=== PATIENT | female | born 1995 | race Caucasian/White ===

== ENCOUNTER 2018-02-14 21:30 | Emergency (ER) | payer BC ==
[2018-02-14] MEDS ORDERED: Ibuprofen 600 MG Tab PO ONE (22:20)
[2018-02-14] MEDS ORDERED: Ondansetron 4 MG Tab.DIS PO ONE (22:20)
[2018-02-14] MEDS ORDERED: Orphenadrine 100 MG Tab.ER PO STA (22:20)
--- NOTE | 2018-02-14 22:29 | EDM.PDOC ---
ED HPI GENERAL MEDICAL PROBLEM - General Chief Complaint: Back Pain or Injury Stated Complaint: [facility] Time Seen by Provider: 02/14/18 21:42 Source of Information: Reports: Patient, Family (, mother) History Limitations: Reports: No Limitations - History of Present Illness INITIAL COMMENTS - FREE TEXT/NARRATIVE: The patient is brought by ambulance with a complaint of severe low back pain since 05:00 this morning. No history of trauma. No recent illness or fever. She states that the pain is always present, but worse with certain movements, including flexing and standing. The pain does not radiate down either lower extremity. Patient states that she took ibuprofen around 07:00 this morning. The patient states that she was then seen at the walk-in clinic at 10:15 this morning. She states that no tests were done, but she was referred to the clinic for further evaluation and treatment. The patient states that she did not go to the clinic, citing lack of funds. The patient states that she then took a Percocet around noon. No prior similar symptoms. The patient states that she lifts about 5-10 pounds off the floor at work. She has been doing this since July. The patient has an appointment to see Paige Fuentes as a PCP tomorrow morning, Tuesday,, 02/15/2018, at 09:00. Treatments WAIST CUTTER: Reports: NSAIDS, Other Medication(s), Other (see below) Other Treatments WAIST CUTTER: heat pack Bilateral Middle Back Pain Score (Numeric/FACES): 10 - Related Data Allergies Allergy/AdvReac Type Severity Reaction Status Date / Time No Known Allergies Allergy Verified 02/14/18 21:40 Home Meds: Home Meds Ondansetron [Zofran ODT] 1 tab PO Q8H PRN #10 tab.dis 02/14/18 [Rx] Orphenadrine [Norflex] 1 tab PO Q12H PRN #20 tab.er 02/14/18 [Rx] Past Medical History Endocrine/Metabolic History: Reports: Obesity/BMI 30+ - Infectious Disease History Infectious Disease History: Reports: Chicken Pox, Other (See Below) (Kawasaki disease at 4 years old) - Past Surgical History HEENT Surgical History: Reports: Myringotomy w Tube(s) (bilateral) Social & Family History - Family History Family Medical History: Noncontributory - Tobacco Use Smoking Status *Q: Former Smoker Years of Tobacco use: 1 Month/Year Tobacco Last Used: Quit 2011 - Caffeine Use Caffeine Use: Reports: Coffee, Energy Drinks, Soda Other Caffeine Use: occasionally - Alcohol Use Alcohol Use History: Yes Alcohol Use Frequency: Rarely - Recreational Drug Use Recreational Drug Use: Yes Drug Use in Last 12 Months: Yes Recreational Drug Type: Reports: Marijuana/Hashish (smokes occasionally) Recreational Drug Last Use: last week - Living Situation & Occupation Living situation: Reports: , with Spouse 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 ED EXAM,LOWER BACK PAIN/INJURY - Physical Exam Exam: See Below Exam Limited By: No Limitations General Appearance: Alert, WD/WN, Mild Distress (Appears uncomfortable) Eye Exam: Bilateral Eye: EOMI, Normal Inspection Ears: Normal External Exam, Hearing Grossly Normal Nose: Normal Inspection, No Blood Throat/Mouth: Normal Inspection, Normal Lips, Normal Voice, No Airway Compromise Head: Atraumatic, Normocephalic Neck: Normal Inspection, Full Range of Motion Respiratory/Chest: No Respiratory Distress, Lungs Clear, Normal Breath Sounds, No Accessory Muscle Use Cardiovascular: Normal Peripheral Pulses, Regular Rate, Rhythm, No Gallop, No JVD, No Murmur, No Rub GI/Abdominal: Normal Bowel Sounds, Soft, Non-Tender, No Organomegaly, No Distention, No Abnormal Bruit, No Mass, Other (Obese) (Female) Exam: Deferred Rectal (Female) Exam: Deferred Back Exam: Other (No visible abnormality to the patient's back, such as swelling , erythema, ecchymosis, or abrasion. No tenderness to palpation of either the thoracic or lumbar spinous processes, nor to the paraspinous musculature. No tenderness to palpation over the left or right SI joints. Straight leg raise to 30 on the left induces lower left back pain, but no left lower extremity radiculopathy. Straight leg raise to 45 on the right induces lower right back pain, but no right lower extremity radiculopathy. The patient is able to flex the spine to only 2, but extend the spine to about 10. She is able to tilt bilaterally to about 30. She is able to twist bilaterally to about 45. Unilateral knee bend is normal bilaterally.) Extremities: Normal Inspection, Normal Range of Motion, No Pedal Edema, Normal Capillary Refill Neurological: Alert, No Motor/Sensory Deficits, Oriented x 3 Psychiatric: Normal Affect Skin Exam: Warm, Dry, Intact, Normal Color, No Rash Course - Vital Signs Last Recorded V/S: Last Vital Signs Temp 37.3 C 02/14/18 21:32 Pulse 59 L 02/14/18 21:32 Resp 19 02/14/18 21:32 BP 135/74 02/14/18 21:32 Pulse Ox 97 02/14/18 21:32 - Orders/Labs/Meds Meds: Medications Discontinued Medications Generic Name Dose Route Start Last Admin Trade Name Kamar PRN Reason Stop Dose Admin Ibuprofen 600 mg 02/14/18 22:20 02/14/18 22:26 Motrin PO 02/14/18 22:21 600 mg ONETIME ONE Administration Ondansetron HCl 4 mg 02/14/18 22:20 02/14/18 22:26 Zofran Odt PO 02/14/18 22:21 4 mg ONETIME ONE Administration Orphenadrine Citrate 100 mg 02/14/18 22:20 02/14/18 22:26 Norflex PO 02/14/18 22:21 100 mg ONETIME STA Administration - Re-Assessments/Exams Free Text/Narrative Re-Assessment/Exam: 02/14/18 22:21 By both history and physical examination, the patient is experiencing lower back muscle spasm. There is no indication that she has a herniated intervertebral disc, as there is no radiation down either lower extremity. As there is no history of trauma, emergency x-rays of the lumbar spine are not indicated. For today's purposes, I have ordered ibuprofen, Norflex, and Zofran, and I will electronically send prescriptions for Norflex and Zofran. She can take over the counter ibuprofen. She already has an appointment to see Paige Fuentes at 9 :00 tomorrow morning. I advised the patient stay active. Swimming is best, walking is good, as well. I strongly advised that she not stay in bed or lie on the couch, as many studies have shown that this makes lower back pain worse. Departure - Departure Time of Disposition: 22:24 Disposition: Home, Self-Care 01 Condition: Good Clinical Impression: Spasm of muscle of lower back - Discharge Information *PRESCRIPTION DRUG MONITORING PROGRAM REVIEWED*: Not Applicable *COPY OF PRESCRIPTION DRUG MONITORING REPORT IN PATIENT RODOLFO: Not Applicable Prescriptions: Ondansetron [Zofran ODT] 1 tab PO Q8H PRN #10 tab.dis PRN Reason: Nausea/Vomiting Orphenadrine [Norflex] 1 tab PO Q12H PRN #20 tab.er PRN Reason: Muscle Spasm Instructions: Muscle Cramps and Spasms, [id number] Referrals: Paige Fuentes PA-C [Physician Furniture Finisher] - Forms: ED Department Discharge Additional Instructions: You were seen in the emergency room for low back pain, without a history of trauma. Evaluation in the emergency department finds that your back pain is due to a muscle spasm, not a herniated intervertebral disc. You have been started on the muscle relaxant Norflex, along with ibuprofen and the anti-nausea medicine Zofran. Prescriptions for Norflex and Zofran have been sent to the [facility] pharmacy, [address] [place] [address]. Take one tablet of Norflex every 12 hours, starting tomorrow morning, Tuesday , 02/15/2018, as prescribed. Take [id number] ibuprofen, 2-3 tablets (400-600 mg) every 8 hours, with food, as needed for discomfort. Dissolve one tablet of Zofran on your tongue up to every 8 hours, as needed for nausea/vomiting. It is very important that you stay active. Swimming is best, but walking is good , as well. DO NOT lie in bed or on the couch, as this makes low back pain worse ! Follow-up with Paige Fuentes as a PCP at your previously scheduled appointment tomorrow morning, 02/15/2018, at 9:00 AM. If any other problems, please do not hesitate to return to the ER.
== END 2018-02-14 23:03 | disposition home or self-care (01) ==
LOC: JD.ED 21:30
DX: M62.830 Muscle spasm of back (principal); E66.9 Obesity, unspecified; Z87.891 Personal history of nicotine dependence
CPT/HCPCS: 99284; A9270; 99283

== ENCOUNTER 2018-12-11 16:16 | Inpatient (IN) | payer BC ==
[2018-12-11] MEDS ORDERED: Nalbuphine 20 MG/ML 1 ML Syringe IVPUSH PRN (17:11)
[2018-12-11] MEDS ORDERED: Lidocaine 1% 50 ML MDV INJECT ONE (17:11)
[2018-12-11] MEDS ORDERED: Ondansetron 4 MG/2 ML SDV IVPUSH PRN ×2 (17:11→20:20)
[2018-12-11] MEDS ORDERED: Sodium Chloride 0.9% 10 ML Syringe FLUSH PRN (17:11)
[2018-12-11] MEDS ORDERED: Oxytocin/Lactated Ringers 10 UNIT/1,000 ML BAG IV SCH (17:15)
[2018-12-11] MEDS ORDERED: diphenhydrAMINE 50 MG/ML SDV IVPUSH PRN (20:20)
[2018-12-11] MEDS ORDERED: fentaNYL 100 MCG/2 ML SDV EPIDUR PRN (20:20)
[2018-12-11] MEDS ORDERED: ePHEDrine 50 MG/ML SDV IVPUSH PRN (20:20)
--- NOTE | 2018-12-11 20:23 | PCM.PREANE ---
Preanesthetic Assessment - Anesthesia/Transfusion/Family Hx Anesthesia History: No Prior Anesthesia Family History of Anesthesia Reaction: No Transfusion History: No Prior Transfusion(s) - Review of Systems General: No Symptoms Pulmonary: No Symptoms Cardiovascular: Edema (Feet/lower extremities) Gastrointestinal: Other (GERD) Neurological: Headache Other: Reports: None (Obesity BMI 40), Diabetes (Gestational on oral agent for control.) - Physical Assessment Pulse: 78 O2 Sat by Pulse Oximetry: 98 Respiratory Rate: 18 Blood Pressure: 137/69 Vital Signs: Last Vital Signs Temp 36.3 C 12/11/18 17:00 Pulse 78 12/11/18 17:31 Resp 18 12/11/18 17:00 BP 137/69 12/11/18 17:31 Pulse Ox 98 12/11/18 17:00 Height: 1.83 m Weight: 137.983 kg ASA Class: 2 Mental Status: Alert & Oriented x3 Airway Class: Mallampati = 2 Dentition: Reports: Normal Dentition Thyro-Mental Finger Breadths: 3 Mouth Opening Finger Breadths: 3 ROM/Head Extension: Full Lungs: Clear to Auscultation, Normal Respiratory Effort Cardiovascular: Regular Rate, Regular Rhythm - Lab Values: Laboratory Last Values Blood Type B POSITIVE 12/11/18 17:35 Gel Antibody Screen Negative 12/11/18 17:35 - Allergies Allergies/Adverse Reactions: Allergies Allergy/AdvReac Type Severity Reaction Status Date / Time No Known Allergies Allergy Verified 12/11/18 16:46 - Acknowledgements Anesthesia Type Planned: Epidural Pt an Appropriate Candidate for the Planned Anesthesia: Yes Alternatives and Risks of Anesthesia Discussed w Pt/Guardian: Yes Pt/Guardian Understands and Agrees with Anesthesia Plan: Yes PreAnesthesia Questionnaire Cardiovascular History: Reports: Other (See Below) Other Cardiovascular History: Kawasaki's disease diagnosed at 4 yoa and treated KILN PULLER History: Reports: Endocrine/Metabolic History: Reports: Diabetes, Gestational, Obesity/BMI 30+ - Infectious Disease History Infectious Disease History: Reports: Chicken Pox, Other (See Below) (Kawasaki disease at 4 years old) - Past Surgical History HEENT Surgical History: Reports: Myringotomy w Tube(s) - SUBSTANCE USE Smoking Status *Q: Never Smoker Recreational Drug Use History: No - HOME MEDS Home Medications: Home Meds PNV95/Ferrous Fumarate/FA [ Tablet] 1 tab PO DAILY 12/11/18 [History] glyBURIDE [Glyburide] 2.5 mg PO DAILY 12/11/18 [History] - CURRENT (IN HOUSE) MEDS Current Meds: Current Medications Diphenhydramine HCl (Benadryl) 25 mg IVPUSH Q6H PRN PRN Reason: Pruritis Ephedrine Sulfate (Ephedrine Sulfate) 5 mg IVPUSH ASDIRECTED PRN PRN Reason: Hypotension Fentanyl (Sublimaze) 100 mcg EPIDUR ONETIME PRN PRN Reason: Pain Fentanyl/Bupivacaine HCl (Iezkpfgp-Qohdn-Ts 2 Mcg/Ml-0.125%) 100 ml EPIDUR ASDIRECTED PRN PRN Reason: Abdominal Pain Lactated Ringer's (Ringers, Lactated) 1,000 mls @ 100 mls/hr IV ASDIRECTED SARAH Oxytocin/Lactated Ringer's (Pitocin In Lr 10 Units/1,000 Ml) 10 unit in 1,000 mls @ 500 mls/hr IV .CONTINUOUS SARAH Nalbuphine HCl (Nubain) 10 mg IVPUSH Q2H PRN PRN Reason: pain Ondansetron HCl (Zofran) 4 mg IVPUSH Q4H PRN PRN Reason: Nausea/Vomiting Ondansetron HCl (Zofran) 4 mg IVPUSH ONETIME PRN PRN Reason: Nausea/Vomiting Sodium Chloride (Saline Flush) 10 ml FLUSH ASDIRECTED PRN PRN Reason: Keep Vein Open Discontinued Medications Lidocaine HCl (Xylocaine 1%) 50 ml INJECT ASDIRECTED ONE Stop: 12/11/18 17:12
--- NOTE | 2018-12-11 20:34 | PCM.LDHP ---
L&D History of Present Illness - General Date of Service: 12/11/18 Admit Problem/Dx: Patient Status Order with Admit Dx/Problem 12/11/18 17:11 Patient Status [ADT] Routine Admission Diagnosis/Problem Admission Diagnosis/Problem 12/11/18 20:20 Alyson Hitchcock 23-year-old 1 para 0 white female admitted at 37-4/7 weeks gestational age with an ANTONIO of 12/28/2018 for a medical induction for the diagnosis of elevated blood pressures in . Source of Information: Patient History Limitations: Reports: No Limitations - History of Present Illness Introduction:: Alyson Hitchcock 23-year-old 1 para 0 white female admitted at 37-4/7 weeks gestational age with an ANTONIO of 12/28/2018 for a medical induction for the diagnosis of elevated blood pressures in .She was seen in clinic today and brought with her blood pressures for the last 3 days. She was sent been in the 142-154 range over the 80 to to 102 range during that time. She reports headaches daily. Also has had some right sided abdominal pain. She has a history of seen some spots in her eyes but has not reported any of these today. Discussion is held with patient as to the benefits of induction of labor, risks , alternatives of care. It is my feeling that at 37-4/7 weeks gestational age with progression of symptoms and signs at the benefits of continued intrauterine existence do not outweigh benefits of delivery at this point. She appears to understand and wishes to proceed. Patient did have biophysical profile today which showed score of 8/8. This after a less than reassuring nonstress test. Has been weight is 7 lbs. 4 oz. (3288 g). Baby is growing at the 77th percentile. Patient is a gestational diabetic but has been well controlled with diet, activity and glyburide therapy 2.5 mg daily at bedtime. [employer]IST history: 1 para 0 last menstrual period 03/23/2018 onset. LMP was definite and ultrasounds 3 done on 06/23/2018 08/10/2018 and 09/11/2018 consistent with her dates. Patient had menarche at age 11. Cycles every 30 days. Positive hCG occurring on 04/17/2018. course: Patient was first seen for the on 06/23/2018 at 13 weeks and 1 day. Weight gain has been from 264 pounds up to 304 pounds for a 40 pound weight gain. Her vital signs were essentially normal until approximately 34-35 weeks. She's had a progressive increase in her blood pressure since that time. Patient had an abnormal 1 hour GTT and three-hour GTT. She was started on diet and activity along with blood sugars 4 times per day. Blood sugars were little higher than desired and patient was then placed on glyburide 2.5 mg by mouth daily. With this she's been under excellent control. She plans to breast- feed. She had her Tdap immunization on 10/26/2018. She's been undergoing weekly NSTs with reactive strips resulting. She is group B strep negative. She desires epidural. She declined flu shot. She declined genetic testing. Laboratory testing in consistent B+ blood. Negative and by screen. First hemoglobin was 12.9 g/dL. Platelets are 306,000. She is rubella nonimmune. Hepatitis B surface antigen and HIV assays are both negative as were Chlamydia and gonorrhea assays. Second trimester laboratory testing showed hemoglobin 11.1 g/dL which time she was started on ferrous sulfate 325 mg by mouth daily. Platelets are 282,000. One-hour GTT was 184 mg/dL. Three-hour glucose tolerance test showed a fasting blood sugar of 95. A 1 hour test of 207. A 2 hour glucose of 193 and a three-hour glucose of 128. Group B strep screen is negative. RPR and second trimester was nonreactive. Allergies: None Medications: 1. Glyburide 2.5 mg by mouth daily at bedtime. 2. Ferrous sulfate 325 mg by mouth daily 3. vitamins 1 daily Past medical history: 1. History of endometriosis and prepped 2. Seasonal allergies Past surgical history: Unremarkable Family history: Mother is alive and well. Maternal grandmother is alive and well with hypertension and bad knees. Maternal grandfather secondary to motor vehicle accident. Paternal grandmother and paternal grandfathers history not known. No , anesthesia, bleeding or blood clotting problems or psychiatric problems noted in the family. Social history: Patient is . is Daquan Marques. She does not use any significant most alcohol, drugs tobacco. She is a high school graduate. Review of systems: The patient's chief complaints include those outlined in history of present illness. She has edema in bilateral lower extremities. Doses had headaches and occasionally spots from the right. Reports good activity. Skin: Negative Lungs: No infectious symptoms or shortness of breath Cardiovascular: No chest pain or exercise intolerance Breasts: No lumps, changes in size, pain, dimpling, discharge or axillary or supraclavicular concerns. GI: Negative : Negative Musculoskeletal: Negative Neurological: Negative In general the patient is well-developed, well-nourished, overweight white, pleasant female of stated age in no acute distress. Skin is warm dry without lesions. HEENT, neck and back within normal limits. Lungs are clear with good breath sounds in all lung paige. Cardiovascular exam shows regular and rhythm without murmurs. Abdomen is gravid with last fundal height in clinic on the day of admission at 39.5. Baby is in a vertex presentation. Genital exam: There is normal external genitalia, BUS, pubic hair pattern. There is normal support, secretions and estrogenization vagina. Uterus is small , anterior, freely mobile, without parametrial induration or adnexal abnormalities. Cervix is 2 cm/60%/soft/-3/mid position Extremities and neurological exam are grossly within normal limits. - Related Data Allergies/Adverse Reactions: Allergies Allergy/AdvReac Type Severity Reaction Status Date / Time No Known Allergies Allergy Verified 12/11/18 16:46 Home Medications: Home Meds PNV95/Ferrous Fumarate/FA [ Tablet] 1 tab PO DAILY 12/11/18 [History] glyBURIDE [Glyburide] 2.5 mg PO DAILY 12/11/18 [History] Past Medical History Cardiovascular History: Reports: Other (See Below) Other Cardiovascular History: Kawasaki's disease diagnosed at 4 yoa and treated [employer] SPECIALIST History: Reports: Endocrine/Metabolic History: Reports: Diabetes, Gestational, Obesity/BMI 30+ - Infectious Disease History Infectious Disease History: Reports: Chicken Pox, Other (See Below) (Kawasaki disease at 4 years old) - Past Surgical History HEENT Surgical History: Reports: Myringotomy w Tube(s) Social & Family History - Family History Family Medical History: Noncontributory - Tobacco Use Smoking Status *Q: Never Smoker - Caffeine Use Caffeine Use: Reports: None Other Caffeine Use: occasionally - Recreational Drug Use Recreational Drug Use: No - Living Situation & Occupation Living situation: Reports: , with Spouse 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 Review of Systems - Review of Systems: Review Of Systems: See Below L&D Exam - Exam Exam: See Below - Vital Signs Vital Signs: Last Vital Signs Temp 36.3 C 12/11/18 17:00 Pulse 78 12/11/18 17:31 Resp 18 12/11/18 17:00 BP 137/69 12/11/18 17:31 Pulse Ox 98 12/11/18 17:00 Weight: 137.983 kg - Patient Data Lab Results Last 24 hrs: Laboratory Results - last 24 hr 12/11/18 Range/Units 17:35 Blood Type B POSITIVE Gel Antibody Screen Negative Problem List Initiated/Reviewed/Updated: Yes Orders Last 24hrs: Active Orders 24 hr Category Date Time Status Patient Status [ADT] Routine ADT 12/11/18 17:11 Active Activity as Tolerated [RC] PFP Care 12/11/18 17:11 Active Communication Order [RC] ASDIRECTED Care 12/11/18 17:11 Active Heart Tones [RC] ASDIRECTED Care 12/11/18 17:11 Active Non Stress Test [RC] PER UNIT ROUTINE Care 12/11/18 17:11 Active Notify Provider [RC] PFP Care 12/11/18 17:11 Active Notify Provider [RC] PRN Care 12/11/18 17:11 Active Peripheral IV Care [RC] . DIRECTED Care 12/11/18 17:11 Active Vital Signs [RC] PER UNIT ROUTINE Care 12/11/18 17:11 Active Regular Diet [DIET] Diet 12/11/18 Dinner Active RAPID PLASMA REAGIN,RPR [CHEM] Stat Lab 12/11/18 17:35 Received Lactated Ringers [Ringers, Lactated] 1,000 ml Med 12/11/18 17:15 Active IV ASDIRECTED Nalbuphine [Nubain] Med 12/11/18 17:11 Active 10 mg IVPUSH Q2H PRN Ondansetron [Zofran] Med 12/11/18 17:11 Active 4 mg IVPUSH Q4H PRN Oxytocin/Lactated Ringers [Pitocin in LR 10 Units/1,000 Med 12/11/18 17:15 Active ML] 10 unit in 1,000 ml IV .CONTINUOUS Sodium Chloride 0.9% [Saline Flush] Med 12/11/18 17:11 Active 10 ml FLUSH ASDIRECTED PRN Electronic Heart Tones Ext w TOCO [WOMSER] Ot 12/11/18 17:11 Ordered Routine Electronic Heart Tones Internal [WOMSER] Per Unit Ot 12/11/18 17:11 Ordered Routine Peripheral IV Insertion Adult [OM.PC] Routine Ot 12/11/18 17:11 Ordered Resuscitation Status Routine Resus Stat 12/11/18 17:11 Ordered Medication Orders Lactated Ringer's (Ringers, Lactated) 1,000 mls @ 100 mls/hr IV ASDIRECTED SARAH Oxytocin/Lactated Ringer's (Pitocin In Lr 10 Units/1,000 Ml) 10 unit in 1,000 mls @ 500 mls/hr IV .CONTINUOUS SARAH Nalbuphine HCl (Nubain) 10 mg IVPUSH Q2H PRN PRN Reason: pain Ondansetron HCl (Zofran) 4 mg IVPUSH Q4H PRN PRN Reason: Nausea/Vomiting Sodium Chloride (Saline Flush) 10 ml FLUSH ASDIRECTED PRN PRN Reason: Keep Vein Open Assessment/Plan Comment:: 1. 37-4/7 week intrauterine , elevated blood pressures-laboratory tests normal. Findings most probably associated with progressive gestational hypertension. 2. Group B strep screen negative 3. Rubella nonimmune 4. Desiring epidural in labor Plan: 1. Pitocin/artificial rupture membranes induction of labor 2. Monitor contractions and heart tones very closely 3. Laboratory testing for preeclampsia completed and essentially negative. 4. Referral for labor analgesia. 5. MMR postdelivery and prior to discharge for rubella nonimmune status.
[2018-12-11] MEDS: Oxytocin/Lactated Ringers 10 UNIT/1,000 ML BAG IV SCH (23:03)
[2018-12-11] MEDS: Lactated Ringers 1,000 ML IV SCH (23:05)
[2018-12-11] MEDS: Acetaminophen 325 MG Tab PO PRN (23:10)
[2018-12-12] MEDS: Acetaminophen 325 MG Tab PO PRN (04:51)
--- NOTE | 2018-12-12 08:00 | PCM.SN ---
- Free Text/Narrative Note: Patient continues with induction of labor. Pitocin is presently at approximately 18 mU/m. Juliet approximately every 3-5 minutes. Moderate intensity per palpation evaluation by nursing staff. Patient is very hard to monitor because of body habitus and weight. The heart tones are reassuring. Vital signs: Blood pressures have been running systolically in the 140s to 150s with diastolics in the 80s and 90s up to 100. Blood pressures have been very labile dependent somewhat on patient's position. Patient did get some rest during the course of the night. Today examination shows blood pressure 157 systolically. She is recently comfortable and not having any significant pain. Cervix is 2+ centimeters, 80% effaced, -3 station, very soft, mid position. Spell presentation noted. Artificial rupture membranes is undertaken with resultant clear amniotic fluid. Assessment: 1. Hypertension pregnancysuspect gestational hypertension as preeclampsia labs have returned normal. 2. Patient interested in epidural for labor and analgesia Plan: 1. Continue with Pitocin augmentation. Reevaluate in 1-2 hours if minimal progress is noted will place internal pressure catheter to objectively evaluate the contraction pattern.
[2018-12-12] MEDS: Labetalol 100 MG Tab PO SCH ×4 (09:23→21:36)
[2018-12-12] MEDS: fentaNYL/Bupivacaine-NS 2 MCG/ML-0.125%/PF 100 ML Bag EPIDUR PRN ×3 (09:51→18:36)
[2018-12-12] MEDS: Lactated Ringers 1,000 ML IV SCH ×2 (10:02→13:19)
[2018-12-12] MEDS: Oxytocin/Lactated Ringers 10 UNIT/1,000 ML BAG IV SCH (12:09)
--- NOTE | 2018-12-12 22:40 | PCM.SN ---
- Free Text/Narrative Note: Alyson is a 23-year-old 1 now para 1001 white female admitted at 37-4/ 7 weeks gestational age on the evening of 12/11/2018 for medical induction of labor for diagnosis of gestational hypertension. She is evaluated with preeclampsia labs which were essentially negative. Her deep tendon reflexes were normal. She did have 1+ pitting edema and blood pressures were running in the 140s to 150s systolically over the the 80s to 90s diastolically. Induction of labor was discussed due to patient. She wished to proceed. Patient was started on Pitocin and over the course of the first 6-8 hours made very slow progress. She underwent artificial rupture membranes on the a.m. of and from that point on made more rapid progress. She had an epidural placed for labor and analgesia. She dilated to complete cervical dilation by approximately 2130 hrs. Time she began pushing. She delivered a viable, henning, male with Apgars of 8 and 9, weight of 3600 g (7 lbs. 15 oz.) , a length of 21.0 inches in a left occiput anterior position at 2205 hrs. on . Pitocin was started immediately after delivery via IV. The baby was placed on mom's abdomen and the nose and mouth were bulb suctioned. The umbilical cord was allowed to pulsate for approximately 1 minute and then it was clamped 2 and cut by the baby's father. The cord blood was obtained. The umbilical cord was noted to have 3 vessels present. The patient was noted to have a second-degree laceration which was repaired with 3-0 Monocryl suture in a routine fashion. Epidural was used for anesthesia as regard to the perineal laceration repair. The placenta delivered at 2215 hrs. in a Tripathi presentation, appeared intact and complete and was discarded per patient desire. Estimated blood loss was approximately 200 mL. Condition was good. The patient plans to nurse.
[2018-12-12] MEDS ORDERED: Benzocaine/Menthol 20%-0.5% Spray 56 GM Canister TOP PRN (22:54)
[2018-12-12] MEDS ORDERED: Docusate Sodium 100 MG Cap PO PRN (22:54)
[2018-12-12] MEDS ORDERED: Witch Hazel Medicated Pads 40/Jar TOP PRN (22:54)
[2018-12-12] MEDS ORDERED: Lanolin 100% Cream 7 GM Tube TOP PRN (22:54)
[2018-12-12] MEDS ORDERED: Acetaminophen 325 MG Tab PO PRN (22:54)
[2018-12-12] MEDS: Ibuprofen 600 MG Tab PO PRN (23:57)
[2018-12-13] MEDS ORDERED: Bupivacaine 0.25% 10 ML SDV ONE (04:00)
[2018-12-13] MEDS ORDERED: Lidocaine 1.5% with EPINEPHrine 1:200,000 5 ML Amp ONE (04:00)
[2018-12-13] MEDS: Labetalol 100 MG Tab PO SCH ×4 (08:20→23:59)
[2018-12-13] MEDS: Prenatal Multivitamin with Calcium/Folic Acid/Iron Tab PO SCH (08:20)
--- NOTE | 2018-12-13 10:00 | PCM.SN ---
- Free Text/Narrative Note: note: Patient is doing well in the period. Minimal lochia, voiding well, ambulated without problems. Nursing without concerns. Pressures have normalized. Labetalol previously ordered was held this exam because of normal blood pressure. Patient is afebrile, vital signs are stable Abdomen is flat, soft, uterus is below the umbilicus and is firm and nontender. Legs are nontender. Assessment: 1. Gestational hypertension. Stable. Possibly resolving 2. recovery going well. Plan: Routine care. after blood pressures closely. Patient be discharged home within the next 24-48 hours.
[2018-12-13] MEDS: Ibuprofen 600 MG Tab PO PRN (12:44)
--- NOTE | 2018-12-14 08:24 | PCM.DCSUM1 ---
Discharge Summary - Hospital Course Free Text/Narrative:: Alyson is a 23-year-old 1 now para 1001 white female admitted at 37-4/ 7 weeks gestational age on the evening of 12/11/2018 for medical induction of labor for diagnosis of gestational hypertension. She is evaluated with preeclampsia labs which were essentially negative. Her deep tendon reflexes were normal. She did have 1+ pitting edema and blood pressures were running in the 140s to 150s systolically over the the 80s to 90s diastolically. Induction of labor was discussed due to patient. She wished to proceed. Patient was started on Pitocin and over the course of the first 6-8 hours made very slow progress. She underwent artificial rupture membranes on the a.m. of and from that point on made more rapid progress. She had an epidural placed for labor and analgesia. She dilated to complete cervical dilation by approximately 2130 hrs. Time she began pushing. She delivered a viable, henning, male infant with Apgars of 8 and 9, weight of 3600 g (7 lbs. 15 oz.) , a length of 21.0 inches in a left occiput anterior position at 2205 hrs. on . Pitocin was started immediately after delivery via IV. The baby was placed on mom's abdomen and the nose and mouth were bulb suctioned. The umbilical cord was allowed to pulsate for approximately 1 minute and then it was clamped 2 and cut by the baby's father. The cord blood was obtained. The umbilical cord was noted to have 3 vessels present. The patient was noted to have a second-degree laceration which was repaired with 3-0 Monocryl suture in a routine fashion. Epidural was used for anesthesia as regard to the perineal laceration repair. The placenta delivered at 2215 hrs. in a Tripathi presentation, appeared intact and complete and was discarded per patient desire. Estimated blood loss was approximately 200 mL. Condition was good.The patient plans to nurse. BPs have normalized and patient is not on any meds at present. She is ready for discharge. Diagnosis: Stroke: No - Discharge Data Discharge Date: 12/14/18 Discharge Disposition: Home, Self-Care 01 Condition: Good - Patient Instructions Diet: Regular Diet as Tolerated (Nursing diet was increased calories and calcium is recommended.) Activity: As Tolerated (No intercourse or tampons until bleeding resolves) Driving: May Drive Today Showering/Bathing: May Shower (May take a bath) Notify Provider of: Fever, Increased Pain, Swelling and Redness, Nausea and/or Vomiting - Discharge Plan Home Medications: Home Meds PNV95/Ferrous Fumarate/FA [ Tablet] 1 tab PO DAILY 12/11/18 [History] Acetaminophen [Tylenol] 650 mg PO Q4H PRN tablet 12/14/18 [Rx] Ibuprofen [Motrin] 600 mg PO Q4H PRN tablet 12/14/18 [Rx] - Discharge Summary/Plan Comment DC Time >30 min.: No Discharge Summary/Plan Comment: Discharge instructions: 1. Discharge home 2. Diet, activity and follow-up discussed with patient. Recommend nursing diet with increased calories and calcium. 3. Precautions given concern increased pain, bleeding, temperature, signs/ symptoms of DVT/PE. 4. Medications per home medication was printed, discussed with and given to the patient. 5. Return to clinic-Dr. Gillespie[facility] in 1 week- BP check. Diagnosis: 1. Gestational hypertension 2. Term -delivered Condition: Good - Patient Data Vitals - Most Recent: Last Vital Signs Temp 36.7 C 12/14/18 07:51 Pulse 86 12/14/18 07:52 Resp 18 12/14/18 07:51 BP 141/68 H 12/14/18 07:52 Pulse Ox 98 12/14/18 07:52 Weight - Most Recent: 137.983 kg Med Orders - Current: Current Medications Acetaminophen (Tylenol) 650 mg PO Q4H PRN PRN Reason: mild pain or fever Last Admin: 12/13/18 15:50 Dose: 650 mg Benzocaine/Menthol (Dermoplast Pain Relief Benton) 0 gm TOP ASDIRECTED PRN PRN Reason: Perineal Comfort Measure Last Admin: 12/12/18 23:58 Dose: 1 canister Docusate Sodium (Colace) 100 mg PO BID PRN PRN Reason: Constipation Last Admin: 12/13/18 12:43 Dose: 100 mg Emollient Ointment (Lansinoh Hpa) 0 gm TOP ASDIRECTED PRN PRN Reason: Sore Nipples Ibuprofen (Motrin) 600 mg PO Q4H PRN PRN Reason: Mild pain or fever Last Admin: 12/13/18 12:44 Dose: 600 mg Labetalol HCl (Normodyne) 100 mg PO QID SARAH Last Admin: 12/13/18 23:59 Dose: Not Given Prenat Multivit/Mine Environmental Engineer/Iron/Folic Ac ( Plus Iron) 1 each PO DAILY SARAH Last Admin: 12/13/18 08:20 Dose: 1 each Witch Renetta (Tucks) 1 pad TOP ASDIRECTED PRN PRN Reason: Pain Last Admin: 12/12/18 23:57 Dose: 1 tub Discontinued Medications Acetaminophen (Tylenol) 650 mg PO Q4H PRN PRN Reason: Headache Last Admin: 12/12/18 04:51 Dose: 650 mg Bupivacaine HCl (Sensorcaine-Mpf 0.25%) 10 ml .ROUTE .[facility] ONE Stop: 12/13/18 04:01 Diphenhydramine HCl (Benadryl) 25 mg IVPUSH Q6H PRN PRN Reason: Pruritis Ephedrine Sulfate (Ephedrine Sulfate) 5 mg IVPUSH ASDIRECTED PRN PRN Reason: Hypotension Fentanyl (Sublimaze) 100 mcg EPIDUR ONETIME PRN PRN Reason: Pain Last Admin: 12/12/18 09:50 Dose: 100 mcg Fentanyl/Bupivacaine HCl (Askkndje-Ghafh-Pw 2 Mcg/Ml-0.125%) 100 ml EPIDUR ASDIRECTED PRN PRN Reason: Abdominal Pain Last Admin: 12/12/18 18:36 Dose: 100 ml Lactated Ringer's (Ringers, Lactated) 1,000 mls @ 100 mls/hr IV ASDIRECTED SARAH Last Admin: 12/12/18 13:19 Dose: 100 mls/hr Oxytocin/Lactated Ringer's (Pitocin In Lr 10 Units/1,000 Ml) 10 unit in 1,000 mls @ 500 mls/hr IV .CONTINUOUS SARAH Last Admin: 12/12/18 22:22 Dose: 500 mls/hr Oxytocin/Lactated Ringer's (Pitocin In Lr 10 Units/1,000 Ml) 10 unit in 1,000 mls @ 12 mls/hr IV TITRATE SARAH; Protocol Last Titration: 12/12/18 20:37 Dose: 18 munits/min, 108 mls/hr Labetalol HCl (Normodyne) 100 mg PO Q4H SARAH Last Admin: 12/12/18 21:36 Dose: 100 mg Lidocaine HCl (Xylocaine 1%) 50 ml INJECT ASDIRECTED ONE Stop: 12/11/18 17:12 Last Admin: 12/14/18 01:19 Dose: Not Given Lidocaine/Epinephrine (Xylocaine-Mpf 1.5% W/Epinephrine 1:200,000) 5 ml .ROUTE .[facility] ONE Stop: 12/13/18 04:01 Nalbuphine HCl (Nubain) 10 mg IVPUSH Q2H PRN PRN Reason: pain Ondansetron HCl (Zofran) 4 mg IVPUSH Q4H PRN PRN Reason: Nausea/Vomiting Ondansetron HCl (Zofran) 4 mg IVPUSH ONETIME PRN PRN Reason: Nausea/Vomiting Sodium Chloride (Saline Flush) 10 ml FLUSH ASDIRECTED PRN PRN Reason: Keep Vein Open
[2018-12-14] MEDS: Labetalol 100 MG Tab PO SCH (08:58)
[2018-12-14] MEDS: Prenatal Multivitamin with Calcium/Folic Acid/Iron Tab PO SCH (08:59)
[2018-12-14] MEDS ORDERED: Measles, Mumps & Rubella Vaccine 0.5 ML SDV SUBCUT ONE (08:59)
== END 2018-12-14 10:20 | disposition home or self-care (01) | DRG 560 ==
LOC: JD.OB 16:16 → JD.OBCHECK 16:16 → EDCLIBED 16:22 → UNDOFXCLIACCOM 16:22 → JD.OBCHECK 16:22 → JD.OB 16:22 → OBSVTOIN 12-12 22:05 → JD.OB 12-12 22:06
PROVIDERS: ADMIT Obstetrics & Gynecology; ATTEND Obstetrics & Gynecology
PROC: 3E033VJ Introduction of Other Hormone into Peripheral Vein, Percutaneous Approach (ICD-10-PCS; principal; 2018-12-12)
PROC: 10E0XZZ Delivery of Products of Conception, External Approach (ICD-10-PCS; principal; 2018-12-12)
PROC: 6A550ZT Pheresis of Cord Blood Stem Cells, Single (ICD-10-PCS; principal; 2018-12-12)
PROC: 10907ZC Drainage of Amniotic Fluid, Therapeutic from Products of Conception, Via Natural or Artificial Opening (ICD-10-PCS; principal; 2018-12-12)
PROC: 0KQM0ZZ Repair Perineum Muscle, Open Approach (ICD-10-PCS; principal; 2018-12-12)
PROC: 00HU33Z Insertion of Infusion Device into Spinal Canal, Percutaneous Approach (ICD-10-PCS; 2018-12-12)
PROC: 3E0R3BZ Introduction of Anesthetic Agent into Spinal Canal, Percutaneous Approach (ICD-10-PCS; 2018-12-12)
DX: O13.4 Gestational [pregnancy-induced] hypertension without significant proteinuria, complicating childbirth (principal); O70.1 Second degree perineal laceration during delivery; O24.425 Gestational diabetes mellitus in childbirth, controlled by oral hypoglycemic drugs; Z3A.37 37 weeks gestation of pregnancy; Z37.0 Single live birth; O99.214 Obesity complicating childbirth; E66.9 Obesity, unspecified; O99.62 Diseases of the digestive system complicating childbirth; K21.9 Gastro-esophageal reflux disease without esophagitis
CPT/HCPCS: 01967; 36415; 51702; 59025; 59409; 86592; 86850; 86900; 86901; 90471; 90707; A9270-GY; J2590; J3010; J3490; J7120

== ENCOUNTER 2021-09-05 07:12 | Inpatient (IN) | payer BC ==
[2021-09-05] MEDS ORDERED: Ondansetron 4 MG/2 ML SDV IVPUSH PRN (07:33)
[2021-09-05] MEDS ORDERED: Nalbuphine 10 MG/1 ML Vial IVPUSH PRN (07:33)
[2021-09-05] MEDS ORDERED: Calcium Carbonate 500 MG Tab.Chew PO PRN (07:33)
[2021-09-05] MEDS ORDERED: Sodium Chloride 0.9% 10 ML Syringe FLUSH PRN (07:33)
[2021-09-05] MEDS ORDERED: Oxytocin/Lactated Ringers 10 UNIT/1,000 ML BAG IV SCH ×2 (07:45→08:00)
[2021-09-05] MEDS: Lactated Ringers 1,000 ML IV SCH ×3 (08:06→18:28)
[2021-09-05] MEDS ORDERED: diphenhydrAMINE 50 MG/ML SDV IVPUSH PRN (09:50)
[2021-09-05] MEDS ORDERED: Bupivacaine/fentaNYL/NS 100 ML Bag EPIDUR PRN (09:50)
[2021-09-05] MEDS ORDERED: fentaNYL 100 MCG/2 ML SDV EPIDUR PRN (09:50)
[2021-09-05] MEDS ORDERED: ePHEDrine 50 MG/ML SDV IVPUSH PRN (09:50)
[2021-09-05] MEDS ORDERED: Lidocaine 1% 10 ML MDV ONE (18:00)
[2021-09-05] MEDS: Sodium Chloride 0.9% 10 ML Syringe FLUSH SCH (18:03)
[2021-09-05] MEDS ORDERED: Witch Hazel Medicated Pads 40/Jar TOP PRN (21:36)
[2021-09-05] MEDS ORDERED: Acetaminophen 325 MG Tab PO PRN (21:36)
[2021-09-05] MEDS ORDERED: Benzocaine/Menthol 20%-0.5% Spray 78 GM Cannister TOP PRN (21:36)
[2021-09-05] MEDS: Docusate Sodium 100 MG Cap PO PRN (23:30)
[2021-09-05] MEDS: Ibuprofen 600 MG Tab PO PRN (23:30)
[2021-09-06] MEDS: Sodium Chloride 0.9% 10 ML Syringe FLUSH SCH (07:43)
[2021-09-06] MEDS ORDERED: Prenatal Multivitamin with Calcium/Folic Acid/Iron Tab PO SCH (09:00)
[2021-09-06] MEDS: Ibuprofen 600 MG Tab PO PRN ×3 (11:12→19:35)
[2021-09-06] MEDS: Docusate Sodium 100 MG Cap PO PRN (11:13)
== END 2021-09-06 21:30 | disposition home or self-care (01) | DRG 560 ==
LOC: JD.OB 07:12 → OBSVTOIN 21:21 → JD.OB 09-06 01:09
PROVIDERS: ADMIT Obstetrics & Gynecology; ATTEND Obstetrics & Gynecology
PROC: 10E0XZZ Delivery of Products of Conception, External Approach (ICD-10-PCS; principal; 2021-09-05)
PROC: 10907ZC Drainage of Amniotic Fluid, Therapeutic from Products of Conception, Via Natural or Artificial Opening (ICD-10-PCS; 2021-09-05)
PROC: 3E033VJ Introduction of Other Hormone into Peripheral Vein, Percutaneous Approach (ICD-10-PCS; 2021-09-05)
PROC: 3E0R3BZ Introduction of Anesthetic Agent into Spinal Canal, Percutaneous Approach (ICD-10-PCS; 2021-09-05)
PROC: 00HU33Z Insertion of Infusion Device into Spinal Canal, Percutaneous Approach (ICD-10-PCS; 2021-09-05)
DX: O48.0 Post-term pregnancy (principal); Z37.0 Single live birth; Z3A.40 40 weeks gestation of pregnancy; O99.214 Obesity complicating childbirth; Z87.891 Personal history of nicotine dependence
CPT/HCPCS: 01967; 36415; 51702; 59025; 59409; 85025; 86592; A9270-GY; J2590; J3010; J7120

== ENCOUNTER 2022-09-14 09:56 | Day surgery (SDC) | payer BC ==
[~2022-09-14 09:56] MED LIST: Lactated Ringers 1,000 ML IV SCH; Lidocaine 1%/Sod Bicarbonate in NS 8.4% 1 ML Syringe IDERM PRN; Sodium Chloride 0.9% 10 ML Syringe FLUSH PRN; Sodium Chloride 0.9% 10 ML Syringe FLUSH SCH
[2022-09-14] MEDS ORDERED: Bupivacaine 0.25%/EPINEPHrine 1:200,000 30 ML SDV ONE (10:01)
[2022-09-14] MEDS ORDERED: Sugammadex Sodium 200 MG/2 ML VIAL ONE (10:22)
[2022-09-14] MEDS ORDERED: Propofol 200 MG/20 ML SDV ONE (10:23)
[2022-09-14] MEDS ORDERED: Rocuronium 50 MG/5 ML Vial ONE (10:23)
[2022-09-14] MEDS ORDERED: Dexamethasone 4 MG/ML 5 ML MDV ONE (10:23)
[2022-09-14] MEDS ORDERED: Lidocaine 1% 5 ML VIAL ONE ×2 (10:23→11:00)
[2022-09-14] MEDS ORDERED: Ondansetron 4 MG/2 ML SDV ONE (10:23)
[2022-09-14] MEDS ORDERED: Ketorolac 30 MG/ML SDV ONE (10:23)
[2022-09-14] MEDS ORDERED: fentaNYL 100 MCG/2 ML SDV ONE (10:24)
[2022-09-14] MEDS ORDERED: ceFAZolin 2 GM Vial ONE (10:26)
[2022-09-14] MEDS ORDERED: HYDROmorphone 0.5 MG/0.5 ML Syringe ONE (11:43)
[2022-09-14] MEDS ORDERED: Acetaminophen/oxyCODONE 325-5 MG Tab PO PRN (12:16)
[2022-09-14] MEDS ORDERED: Ondansetron 4 MG/2 ML SDV IVPUSH PRN (12:16)
[2022-09-14] MEDS ORDERED: Ketorolac 30 MG/ML SDV IVPUSH SCH (14:00)
[2022-09-14] MEDS ORDERED: Ibuprofen 600 MG Tab PO PRN (18:00)
== END 2022-09-14 14:24 | disposition home or self-care (01) ==
LOC: JD.SDS 09:56
PROVIDERS: ATTEND Obstetrics & Gynecology
DX: N83.8 Other noninflammatory disorders of ovary, fallopian tube and broad ligament (principal); N70.01 Acute salpingitis; N72 Inflammatory disease of cervix uteri; N87.9 Dysplasia of cervix uteri, unspecified; N84.0 Polyp of corpus uteri; J30.9 Allergic rhinitis, unspecified; Z79.899 Other long term (current) drug therapy; Z98.890 Other specified postprocedural states; Z87.891 Personal history of nicotine dependence
CPT/HCPCS: 58262; A9270; J0690; J1100; J1170; J1885; J2405; J2704; J3010; J3490; J7120